=== PATIENT | female | born 1950 | race Caucasian/White ===

== ENCOUNTER → 2018-03-03 08:43 | Outpatient (CLI) | payer MEDICARE, OTHER, SELFPAY ==
--- NOTE | 2018-03-03 | DI.MG.S_ITS ---
BILATERAL DIGITAL SCREENING MAMMOGRAM 3D/2D WITH CAD: 03/03/2018 CLINICAL: Routine screening. Baseline exam. Family history of breast cancer. Comparison is made to exams dated: 01/28/2016 mammogram, 01/31/2015 mammogram, and 09/21/2013 mammogram - [facility]. The tissue of both breasts is heterogeneously dense. This may lower the sensitivity of mammography. Current study was also evaluated with a Computer Aided Detection (CAD) system. No significant masses, calcifications, or other findings are seen in either breast. There has been no significant interval change. IMPRESSION: NEGATIVE There is no mammographic evidence of malignancy. A 1 year screening mammogram is recommended. This exam was interpreted at Station ID: [id number]. NOTE: For mammograms, a report in lay terms will be sent to the patient. Approximately 15% of breast malignancies will not be visualized mammographically. In the management of a palpable breast mass, a negative mammogram must not discourage biopsy of a clinically suspicious lesion. Electronically Signed By: Jabari maguire/zheng:03/11/2018 18:30:17 letter sent: Normal Exam ACR BI-RADS Category 1: Negative 3341F
== END ==
PROVIDERS: PCP Internal Medicine; Visit Provider Internal Medicine
DX: Z12.31 Encounter for screening mammogram for malignant neoplasm of breast (principal); Z80.3 Family history of malignant neoplasm of breast
CPT/HCPCS: 77063; 77067

== ENCOUNTER → 2019-10-26 12:07 | Outpatient (CLI) | payer MEDICARE, OTHER, SELFPAY ==
--- NOTE | 2019-10-26 | DI.MG.S_ITS ---
BILATERAL DIGITAL SCREENING MAMMOGRAM 3D/2D WITH CAD: 10/26/2019 CLINICAL: Routine screening. Family history of breast cancer. Comparison is made to exams dated: 03/03/2018 mammogram - [facility], 01/28/2016 mammogram, 01/31/2015 mammogram, and 09/21/2013 mammogram - [facility]. The tissue of both breasts is heterogeneously dense. This may lower the sensitivity of mammography. Current study was also evaluated with a Computer Aided Detection (CAD) system. No significant masses, calcifications, or other findings are seen in either breast. There has been no significant interval change. IMPRESSION: NEGATIVE There is no mammographic evidence of malignancy. A 1 year screening mammogram is recommended. This exam was interpreted at Station ID: [id number]. NOTE: For mammograms, a report in lay terms will be sent to the patient. Approximately 15% of breast malignancies will not be visualized mammographically. In the management of a palpable breast mass, a negative mammogram must not discourage biopsy of a clinically suspicious lesion. Electronically Signed By: Carlos porter/zheng:10/26/2019 16:11:05 letter sent: Normal Exam ACR BI-RADS Category 1: Negative 3341F
== END ==
PROVIDERS: PCP Internal Medicine; Referring Provider Internal Medicine; Visit Provider Internal Medicine
DX: Z12.31 Encounter for screening mammogram for malignant neoplasm of breast (principal); Z80.3 Family history of malignant neoplasm of breast; Z78.0 Asymptomatic menopausal state; Z87.891 Personal history of nicotine dependence; Z90.722 Acquired absence of ovaries, bilateral
CPT/HCPCS: 77063; 77067; 77080

== ENCOUNTER → 2020-08-08 16:15 | Outpatient (ROUT) | payer MEDICARE, OTHER, SELFPAY ==
[2020-08-08 16:35] LABS: Aspartate Aminotransferase 38 IU/L (14-36); Blood Urea Nitrogen 19 mg/dL (7-17); Calcium 9.6 mg/dL (8.4-10.2); Carbon Dioxide 26 mmol/L (22-32); Chloride 102 mmol/L (98-107); Cholesterol 206 mg/dL (140-199); Estimated Glomerular Filt Rate > 60.0 mL/min (>60); Glucose 100 mg/dL (80-110); HDL Cholesterol 64 mg/dL (40-60); HEMOLYSIS < 15 (0-50); LDL Cholesterol Calculated 104 mg/dL (<100); Potassium 4.5 mmol/L (3.4-5.1); Sodium 139 mmol/L (137-145); Triglycerides 192 mg/dL (35-150)
== END ==
PROVIDERS: PCP Internal Medicine; Visit Provider Internal Medicine
DX: R03.0 Elevated blood-pressure reading, without diagnosis of hypertension (principal); E78.2 Mixed hyperlipidemia
CPT/HCPCS: 80048; 80061; 84450

== ENCOUNTER → 2020-12-26 18:04 | Outpatient (CLI) | payer MEDICARE, OTHER, SELFPAY ==
--- NOTE | 2020-12-26 | DI.MG.S_ITS ---
BILATERAL DIGITAL SCREENING MAMMOGRAM 3D/2D WITH CAD: 12/26/2020 CLINICAL: Routine screening. Comparison is made to exams dated: 10/26/2019 mammogram, 03/03/2018 mammogram - [facility], and 01/28/2016 mammogram - [facility]. The tissue of both breasts is heterogeneously dense. This may lower the sensitivity of mammography. Current study was also evaluated with a Computer Aided Detection (CAD) system. No significant masses, calcifications, or other findings are seen in either breast. There has been no significant interval change. IMPRESSION: NEGATIVE There is no mammographic evidence of malignancy. A 1 year screening mammogram is recommended. This exam was interpreted at Station ID: [id number]. NOTE: For mammograms, a report in lay terms will be sent to the patient. Approximately 15% of breast malignancies will not be visualized mammographically. In the management of a palpable breast mass, a negative mammogram must not discourage biopsy of a clinically suspicious lesion. Electronically Signed By: Annmarie colvin/zheng:12/27/2020 10:23:52 letter sent: Normal Exam ACR BI-RADS Category 1: Negative 3341F
== END ==
PROVIDERS: PCP Internal Medicine; Referring Provider Internal Medicine; Visit Provider Internal Medicine
DX: Z12.31 Encounter for screening mammogram for malignant neoplasm of breast (principal)
CPT/HCPCS: 77063; 77067

== ENCOUNTER → 2022-01-03 09:30 | Outpatient (CLI) | payer MEDICARE, OTHER, SELFPAY ==
--- NOTE | 2022-01-03 | DI.MG.S_ITS ---
BILATERAL DIGITAL SCREENING MAMMOGRAM 3D/2D WITH CAD: 01/03/2022 CLINICAL: Routine screening. Family history of breast cancer. Comparison is made to exams dated: 12/26/2020 mammogram, 03/03/2018 mammogram, and 10/26/2019 mammogram - [facility]. Both breasts are heterogeneously dense, which may obscure small masses (category c / 51-75% glandular tissue). Current study was also evaluated with a Computer Aided Detection (CAD) system. No significant masses, calcifications, or other findings are seen in either breast. There has been no significant interval change. IMPRESSION: NEGATIVE There is no mammographic evidence of malignancy. A 1 year screening mammogram is recommended. Based on the Tyrer Cuzick model (a risk assessment model) the patient's lifetime risk is 6.0% and her 10 year risk is 3.8%. According to the ACR, ACS, and NCCN guidelines, an annual breast MRI exam along with mammogram is recommended if the patient's lifetime risk is 20% or greater. This exam was interpreted at Station ID: [id number]. NOTE: For mammograms, a report in lay terms will be sent to the patient. Approximately 15% of breast malignancies will not be visualized mammographically. In the management of a palpable breast mass, a negative mammogram must not discourage biopsy of a clinically suspicious lesion. Electronically Signed By: Mayur monae/zheng:01/03/2022 10:17:19 letter sent: Normal Exam ACR BI-RADS Category 1: Negative 3341F
== END ==
PROVIDERS: PCP Internal Medicine; Referring Provider Internal Medicine; Visit Provider Internal Medicine
DX: Z12.31 Encounter for screening mammogram for malignant neoplasm of breast (principal); Z80.3 Family history of malignant neoplasm of breast
CPT/HCPCS: 77063; 77067

== ENCOUNTER → 2022-05-22 15:52 | Outpatient (CLI) | payer MEDICARE, OTHER, SELFPAY ==
[2022-05-22 16:14] LABS: Hematocrit 39.3 % (36-46); Hemoglobin 12.9 g/dL (12.0-16.0); Mean Corpuscular HGB Conc 32.9 % (30-36); Mean Corpuscular Hemoglobin 29.9 PG (26-34); Mean Corpuscular Volume 90.8 fL (80-100); Platelet Count 212 X10^3/uL (150-400); Red Blood Cell Count 4.33 X10^6/uL (4.0-5.2); Red Cell Distribution Width 14.5 % (11.6-14.8); White Blood Cell Count 6.7 X10^3/uL (4.5-11.0)
[2022-05-22 16:27] LABS: Alanine Aminotransferase 32 IU/L (<35); Albumin 4.5 g/dL (3.5-5.0); Albumin Globulin Ratio 1.5 (1.0-2.8); Alkaline Phosphatase 55 U/L (38-126); Aspartate Aminotransferase 33 IU/L (14-36); BUN Creatinine Ratio 21.2 (6-22); Bilirubin Total 0.4 mg/dL (0.2-1.3); Blood Urea Nitrogen 18 mg/dL (7-17); Calcium 9.1 mg/dL (8.4-10.2); Carbon Dioxide 27 mmol/L (22-32); Chloride 104 mmol/L (98-107); Cholesterol 211 mg/dL (140-199); Estimated Glomerular Filt Rate > 60 mL/min (>60); Glucose 118 mg/dL (80-110); HDL Cholesterol 54 mg/dL (40-60); HEMOLYSIS < 15 (0-50); LDL Cholesterol Calculated 89 mg/dL (<100); Potassium 4.1 mmol/L (3.4-5.1); Sodium 138 mmol/L (137-145); Total Protein 7.5 g/dL (6.3-8.2); Triglycerides 339 mg/dL (35-150)
[2022-05-22 16:46] LABS: HEMOLYSIS < 15 (0-50); Iron 132 ug/dL (37-170)
[2022-05-22 16:57] LABS: Percent Iron Saturation 35 % (15-50); Total Iron Binding Capacity 377 ug/dL (265-497); Transferrin 294 mg/dL (206-381)
[2022-05-22 17:01] LABS: Ferritin 47 ng/mL (11-264)
[2022-05-22 17:16] LABS: TSH w/ Reflex to FT4 9.33 uIU/mL (0.47-4.68)
[2022-05-22 17:53] LABS: Free T4, Direct Thyroxine 0.67 ng/dL (0.78-2.19)
== END ==
PROVIDERS: PCP Internal Medicine; Referring Provider Internal Medicine; Visit Provider Internal Medicine
DX: E78.2 Mixed hyperlipidemia (principal); D50.9 Iron deficiency anemia, unspecified; R03.0 Elevated blood-pressure reading, without diagnosis of hypertension
CPT/HCPCS: 36415; 80053; 80061; 82728; 83540; 83550; 84439; 84443; 85027

== ENCOUNTER → 2022-05-28 11:18 | Outpatient (CLI) | payer MEDICARE, OTHER, SELFPAY ==
[2022-05-28 12:36] LABS: Free T3, Triiodothyronine Free 3.57 pg/mL (2.77-5.27); Free T4, Direct Thyroxine 0.68 ng/dL (0.78-2.19); Triiodothryronine T3 Uptake 25.3 % (23.5-40.5)
[2022-05-28 12:49] LABS: Thyroid Stimulating Hormone 8.96 uIU/mL (0.47-4.68)
[2022-05-29 08:36] LABS: Thyroid Peroxidase Antibodies 70 IU/mL (0-34)
== END ==
PROVIDERS: PCP Internal Medicine; Referring Provider Internal Medicine; Visit Provider Internal Medicine
DX: E03.9 Hypothyroidism, unspecified (principal)
CPT/HCPCS: 36415; 84439; 84443; 84479; 84481; 86376

== ENCOUNTER → 2022-08-12 07:03 | Outpatient (CLI) | payer MEDICARE, OTHER, SELFPAY ==
[2022-08-12 08:01] LABS: Aspartate Aminotransferase 28 IU/L (14-36); Cholesterol 129 mg/dL (140-199); HDL Cholesterol 56 mg/dL (40-60); LDL Cholesterol Calculated 34 mg/dL (<100); Triglycerides 194 mg/dL (35-150)
[2022-08-12 08:30] LABS: TSH w/ Reflex to FT4 6.51 uIU/mL (0.47-4.68)
[2022-08-12 08:57] LABS: Free T4, Direct Thyroxine 0.83 ng/dL (0.78-2.19)
== END ==
PROVIDERS: PCP Internal Medicine; Referring Provider Internal Medicine; Visit Provider Internal Medicine
DX: E03.9 Hypothyroidism, unspecified (principal); E78.2 Mixed hyperlipidemia
CPT/HCPCS: 36415; 80061; 84439; 84443; 84450

== ENCOUNTER → 2023-01-12 12:49 | Outpatient (CLI) | payer MEDICARE, OTHER, SELFPAY ==
--- NOTE | 2023-01-12 12:50 | DI.MG.S_ITS ---
BILATERAL DIGITAL SCREENING MAMMOGRAM 3D/2D WITH CAD: 01/12/2023 CLINICAL: Routine screening. Family history of breast cancer. Comparison is made to exams dated: 01/03/2022 mammogram, 12/26/2020 mammogram, and 10/26/2019 mammogram - [facility]. Both breasts are heterogeneously dense, which may obscure small masses (category c / 51-75% glandular tissue). Current study was also evaluated with a Computer Aided Detection (CAD) system. There are benign calcifications in both breasts. No significant masses, calcifications, or other findings are seen in either breast. There has been no significant interval change. IMPRESSION: BENIGN There is no mammographic evidence of malignancy. A 1 year screening mammogram is recommended. Based on the Tyrer Cuzick model (a risk assessment model) the patient's lifetime risk is 5.7% and her 10 year risk is 3.9%. According to the ACR, ACS, and NCCN guidelines, an annual breast MRI exam along with mammogram is recommended if the patient's lifetime risk is 20% or greater. This exam was interpreted at Station ID: [id number]. NOTE: For mammograms, a report in lay terms will be sent to the patient. Approximately 15% of breast malignancies will not be visualized mammographically. In the management of a palpable breast mass, a negative mammogram must not discourage biopsy of a clinically suspicious lesion. Electronically Signed By: Zay montelongo/zheng:01/12/2023 13:54:50 letter sent: Normal Exam ACR BI-RADS Category 2: Benign Finding(s) 3342F
== END ==
PROVIDERS: PCP Internal Medicine; Referring Provider Internal Medicine; Visit Provider Internal Medicine
DX: Z12.31 Encounter for screening mammogram for malignant neoplasm of breast (principal); Z80.3 Family history of malignant neoplasm of breast
CPT/HCPCS: 77063; 77067

== ENCOUNTER → 2023-06-01 07:17 | Outpatient (CLI) | payer MEDICARE, OTHER, SELFPAY ==
[2023-06-01 08:02] LABS: Influenza A - CEPHEID Flu A NEGATIVE (NEGATIVE); Influenza B - CEPHEID Flu B NEGATIVE (NEGATIVE); Respiratory Syncytial Virus Negative (Negative)
[2023-06-01 08:04] LABS: COVID-19 CEPHEID 4-PLEX PCR Negative (Negative)
== END ==
PROVIDERS: PCP Internal Medicine; Visit Provider Nurse Practitioner Family
DX: R06.02 Shortness of breath (principal); K13.79 Other lesions of oral mucosa
CPT/HCPCS: 0241U; 87070

== ENCOUNTER → 2023-06-22 16:17 | Outpatient (CLI) | payer MEDICARE, OTHER, SELFPAY ==
[2023-06-22 17:22] LABS: Hematocrit 38.3 % (36-46); Hemoglobin 12.9 g/dL (12.0-16.0); Mean Corpuscular HGB Conc 33.8 % (30-36); Mean Corpuscular Hemoglobin 30.8 PG (26-34); Mean Corpuscular Volume 91.2 fL (80-100); Platelet Count 186 X10^3/uL (150-400); Red Cell Distribution Width 13.9 % (11.6-14.8); White Blood Cell Count 6.6 X10^3/uL (4.5-11.0)
[2023-06-22 17:29] LABS: Hemoglobin A1C% w Est Avg Glu 5.7 % (4.0-6.0)
[2023-06-22 18:54] LABS: Alanine Aminotransferase 43 IU/L (<35); Albumin 4.1 g/dL (3.5-5.0); Albumin Globulin Ratio 1.5 (1.0-2.8); Alkaline Phosphatase 46 U/L (38-126); Aspartate Aminotransferase 49 IU/L (14-36); BUN Creatinine Ratio 23.3 (6-22); Bilirubin Total 0.5 mg/dL (0.2-1.3); Blood Urea Nitrogen 17 mg/dL (7-17); Calcium 8.9 mg/dL (8.4-10.2); Carbon Dioxide 27 mmol/L (22-32); Chloride 106 mmol/L (98-107); Cholesterol 136 mg/dL (140-199); Estimated Glomerular Filt Rate > 60 mL/min (>60); Globulin 2.7 g/dL (1.7-4.1); Glucose 91 mg/dL (80-110); HDL Cholesterol 59 mg/dL (40-60); HEMOLYSIS < 15 (0-50); LDL Cholesterol Calculated 39 mg/dL (<100); Potassium 3.8 mmol/L (3.4-5.1); Sodium 138 mmol/L (137-145); Total Protein 6.8 g/dL (6.3-8.2); Triglycerides 190 mg/dL (35-150)
[2023-06-22 19:13] LABS: TSH w/ Reflex to FT4 0.51 uIU/mL (0.47-4.68)
[2023-06-22 19:29] LABS: Ferritin 172 ng/mL (11-264)
== END ==
PROVIDERS: PCP Internal Medicine; Referring Provider Internal Medicine; Visit Provider Internal Medicine
DX: E03.9 Hypothyroidism, unspecified (principal); I10 Essential (primary) hypertension; E78.2 Mixed hyperlipidemia; R03.0 Elevated blood-pressure reading, without diagnosis of hypertension; D50.9 Iron deficiency anemia, unspecified; R73.01 Impaired fasting glucose
CPT/HCPCS: 80053; 80061; 82728; 83036; 84443; 85027

== ENCOUNTER → 2023-06-24 10:02 | Outpatient (CLI) | payer MEDICARE, OTHER, SELFPAY ==
[2023-06-25 13:28] LABS: Fecal Immunochemical Test Negative (Negative)
== END ==
PROVIDERS: PCP Internal Medicine; Referring Provider Internal Medicine; Visit Provider Internal Medicine
DX: Z86.010 Personal history of colon polyps (principal)
CPT/HCPCS: 82274

== ENCOUNTER → 2023-11-17 13:35 | Outpatient (CLI) | payer MEDICARE, OTHER, SELFPAY ==
[2023-11-17 14:05] LABS: Appearance Urine UA CLEAR; Bilirubin Urine UA NEGATIVE (NEGATIVE); Color Urine UA YELLOW; Glucose Urine UA NEGATIVE (Negative); Ketones Urine UA NEGATIVE (NEGATIVE); Leukocyte Esterase Urine UA NEGATIVE (NEGATIVE); Nitrite Urine UA NEGATIVE (Negative); Occult Blood Urine UA NEGATIVE (Negative); Protein Urine UA NEGATIVE (Negative); Urobilinogen Urine UA 0.2 E.U./dL (0.2)
[2023-11-17 14:06] LABS: pH Urine UA 5.5 (4.5-8.0)
[2023-11-17 14:20] LABS: Bacteria Urine None Seen; Culture Indicated Urine Cult Not Indicated; RBC Urine None Seen (0-5/HPF); Squamous Epithelial Cell Urine 1-5 /HPF (0-5/HPF); Urine Volume 10mL (spun); WBC Urine None Seen (0-5/HPF)
== END ==
PROVIDERS: PCP Internal Medicine; Referring Provider Internal Medicine; Visit Provider Internal Medicine
DX: R30.0 Dysuria (principal)
CPT/HCPCS: 81001

== ENCOUNTER → 2024-01-12 10:22 | Outpatient (CLI) | payer MEDICARE, OTHER, SELFPAY ==
[2024-01-12 11:20] LABS: Hematocrit 39.3 % (36-46); Hemoglobin 13.3 g/dL (12.0-16.0); Mean Corpuscular HGB Conc 33.8 % (30-36); Mean Corpuscular Hemoglobin 30.6 PG (26-34); Mean Corpuscular Volume 90.7 fL (80-100); Platelet Count 200 X10^3/uL (150-400); Red Blood Cell Count 4.33 X10^6/uL (4.0-5.2); Red Cell Distribution Width 13.7 % (11.6-14.8); White Blood Cell Count 5.5 X10^3/uL (4.5-11.0)
[2024-01-12 11:46] LABS: HEMOLYSIS < 15 (0-50); Iron 96 ug/dL (37-170)
[2024-01-12 11:48] LABS: Alanine Aminotransferase 23 IU/L (<35); Albumin 4.4 g/dL (3.5-5.0); Albumin Globulin Ratio 1.8 (1.0-2.8); Alkaline Phosphatase 45 U/L (38-126); Aspartate Aminotransferase 29 IU/L (14-36); BUN Creatinine Ratio 18.4 (6-22); Bilirubin Total 0.5 mg/dL (0.2-1.3); Blood Urea Nitrogen 14 mg/dL (7-17); Calcium 9.4 mg/dL (8.4-10.2); Carbon Dioxide 26 mmol/L (22-32); Chloride 104 mmol/L (98-107); Estimated Glomerular Filt Rate > 60 mL/min (>60); Globulin 2.4 g/dL (1.7-4.1); Glucose 114 mg/dL (80-110); HEMOLYSIS < 15 (0-50); Potassium 4.3 mmol/L (3.4-5.1); Sodium 136 mmol/L (137-145); Total Protein 6.8 g/dL (6.3-8.2)
[2024-01-12 11:56] LABS: Percent Iron Saturation 29 % (15-50); Total Iron Binding Capacity 327 ug/dL (265-497); Transferrin 270 mg/dL (206-381)
[2024-01-12 12:19] LABS: TSH w/ Reflex to FT4 2.06 uIU/mL (0.47-4.68)
[2024-01-12 12:22] LABS: Ferritin 111 ng/mL (11-264)
== END ==
PROVIDERS: PCP Internal Medicine; Referring Provider Internal Medicine; Visit Provider Internal Medicine
DX: D50.9 Iron deficiency anemia, unspecified (principal); E83.42 Hypomagnesemia; R10.9 Unspecified abdominal pain; K21.9 Gastro-esophageal reflux disease without esophagitis; Z86.0100 Personal history of colon polyps, unspecified; K59.01 Slow transit constipation; R10.30 Lower abdominal pain, unspecified
CPT/HCPCS: 36415; 80053; 82728; 83540; 83550; 83735; 84443; 85027

== ENCOUNTER → 2024-02-03 15:27 | Outpatient (CLI) | payer MEDICARE, OTHER, SELFPAY ==
--- NOTE | 2024-02-03 15:30 | DI.MG.S_ITS ---
BILATERAL DIGITAL SCREENING MAMMOGRAM 3D/2D WITH CAD: 02/03/2024 CLINICAL: Routine screening. Family history of breast cancer. Comparison is made to exams dated: 01/12/2023 mammogram, 12/26/2020 mammogram, and 01/03/2022 mammogram - [facility]. There are scattered areas of fibroglandular density (category b / 25%-50% glandular tissue). Current study was also evaluated with a Computer Aided Detection (CAD) system. There are benign calcifications in both breasts. No significant masses, calcifications, or other findings are seen in either breast. There has been no significant interval change. IMPRESSION: BENIGN There is no mammographic evidence of malignancy. A 1 year screening mammogram is recommended. Based on the Tyrer Cuzick model (a risk assessment model) the patient's lifetime risk is 3.5% and her 10 year risk is 2.6%. According to the ACR, ACS, and NCCN guidelines, an annual breast MRI exam along with mammogram is recommended if the patient's lifetime risk is 20% or greater. This exam was interpreted at Station ID: [id number]. NOTE: For mammograms, a report in lay terms will be sent to the patient. Approximately 15% of breast malignancies will not be visualized mammographically. In the management of a palpable breast mass, a negative mammogram must not discourage biopsy of a clinically suspicious lesion. Electronically Signed By: Annmarie colvin/zheng:02/11/2024 10:35:59 letter sent: Normal Exam ACR BI-RADS Category 2: Benign
== END ==
PROVIDERS: PCP Internal Medicine; Referring Provider Internal Medicine; Visit Provider Internal Medicine
DX: Z12.31 Encounter for screening mammogram for malignant neoplasm of breast (principal); Z80.3 Family history of malignant neoplasm of breast
CPT/HCPCS: 77063; 77067

== ENCOUNTER → 2024-06-14 11:31 | Outpatient (CLI) | payer MEDICARE, OTHER, SELFPAY ==
--- NOTE | 2024-06-14 11:33 | DI.RAD.S_ITS ---
PROCEDURE: XR FOOT LT MIN 3V INDICATIONS: left foot pain, r/o 5th metatarsal fx TECHNIQUE: 3 views of the foot were acquired. COMPARISON: None. FINDINGS: Bones: No fractures or dislocations. No suspicious bony lesions. Mild hallux valgus. Plantar and retrocalcaneal enthesopathy. Soft tissues: No tibiotalar joint effusion. Achilles tendon appears normal. IMPRESSION: No acute bony abnormality. Dictated by: Femi Domínguez M.D. on 06/14/2024 at 14:53 Approved by: Femi Domínguez M.D. on 06/14/2024 at 14:54
== END ==
PROVIDERS: PCP Internal Medicine; Referring Provider Internal Medicine; Visit Provider Internal Medicine
DX: M20.12 Hallux valgus (acquired), left foot (principal); M79.672 Pain in left foot; M72.2 Plantar fascial fibromatosis; M77.32 Calcaneal spur, left foot
CPT/HCPCS: 73630

== ENCOUNTER → 2024-06-26 10:39 | Outpatient (CLI) | payer MEDICARE, OTHER, SELFPAY ==
[2024-06-26 11:17] LABS: Hematocrit 39.3 % (36-46); Hemoglobin 13.4 g/dL (12.0-16.0); Mean Corpuscular HGB Conc 34.2 % (30-36); Mean Corpuscular Hemoglobin 31.3 PG (26-34); Mean Corpuscular Volume 91.6 fL (80-100); Platelet Count 202 X10^3/uL (150-400); Red Blood Cell Count 4.29 X10^6/uL (4.0-5.2); Red Cell Distribution Width 13.9 % (11.6-14.8); White Blood Cell Count 5.3 X10^3/uL (4.5-11.0)
[2024-06-26 11:33] LABS: Hemoglobin A1C% w Est Avg Glu 5.5 % (4.0-6.0)
[2024-06-26 11:48] LABS: Aspartate Aminotransferase 39 IU/L (14-36); BUN Creatinine Ratio 19.8 (6-22); Blood Urea Nitrogen 16 mg/dL (7-17); Calcium 9.5 mg/dL (8.4-10.2); Carbon Dioxide 28 mmol/L (22-32); Chloride 102 mmol/L (98-107); Cholesterol 151 mg/dL (140-199); Estimated Glomerular Filt Rate > 60 mL/min (>60); Glucose 102 mg/dL (80-110); HDL Cholesterol 65 mg/dL (40-60); HEMOLYSIS < 15 (0-50); LDL Cholesterol Calculated 51 mg/dL (<100); Potassium 4.4 mmol/L (3.4-5.1); Sodium 139 mmol/L (137-145); Triglycerides 176 mg/dL (35-150)
[2024-06-26 12:16] LABS: TSH w/ Reflex to FT4 1.85 uIU/mL (0.47-4.68)
== END ==
LOC: LAB 10:40
PROVIDERS: PCP Internal Medicine; Referring Provider Internal Medicine; Visit Provider Internal Medicine
DX: E78.2 Mixed hyperlipidemia (principal); R73.01 Impaired fasting glucose; E03.9 Hypothyroidism, unspecified
CPT/HCPCS: 36415; 80048; 80061; 83036; 84443; 84450; 85027

== ENCOUNTER → 2024-06-28 10:16 | Outpatient (CLI) | payer MEDICARE, OTHER, SELFPAY ==
[2024-06-29 11:12] LABS: Fecal Immunochemical Test Positive (Negative)
== END ==
PROVIDERS: PCP Internal Medicine; Referring Provider Internal Medicine; Visit Provider Internal Medicine
DX: Z12.11 Encounter for screening for malignant neoplasm of colon (principal); Z86.0100 Personal history of colon polyps, unspecified
CPT/HCPCS: 82274

== ENCOUNTER 2024-07-11 06:33 | Day surgery (SDC) | payer MEDICARE, OTHER, SELFPAY ==
--- NOTE | 2024-07-11 06:49 | EKG_ITS ---
[address] [address] Test Date: 2024-07-11 Pat Name: Purnima Rodriges Department: Room: Gender: Female Tree Pruner: Tammy MOTT : 1950 Requested By: Order Number: [id number] Reading MD: Brandon Calvin Measurements Intervals [place] Rate: 70 P: 24 WV: 150 QRS: 15 QRSD: 86 T: 10 QT: 438 QTc: 473 Interpretive Statements Normal sinus rhythm Electronically Signed On 07-12-2024 17:39:34 PDT by Brandon Calvin
[2024-07-11 07:20] VITALS: BP 141/85; PULSE 69; RESP 15; TEMP 36.3; O2SAT 94
[2024-07-11] MEDS: LACTATED RINGERS 1,000 ML 42 ML IV (07:20)
--- NOTE | 2024-07-11 07:48 | P.HP_ITS ---
History of Present Illness History of Present Illness Chief complaint: [facility] Narrative: 74-year-old woman with history of colon polyps. Her last colonoscopy was 4 years ago. She does not recall where this colonoscopy was performed. She has no complaints referable to her colon and presents for screening colonoscopy. [facility] Medical History (Updated 06/26/24 @ 10:27 by Marito Vasquez MD) Impaired fasting glucose History of colonic polyps De Quervain's tenosynovitis Mumps (~1956) Measles (~1955) Chicken pox (~1956) Cataracts, bilateral (~2014) Colon polyps (~2014) Acquired hypothyroidism Obstructive sleep apnea Depression, major, recurrent (~1969) Obesity (BMI 30.0-34.9) Primary osteoarthritis involving multiple joints Iron deficiency anemia Elevated blood pressure reading without diagnosis of hypertension GERD without esophagitis Mixed hyperlipidemia Surgical History Anesthesia Hx of appendectomy (~2006) Hx of cholecystectomy (~2006) Hx of hysterectomy (~2002) Family History Father Hypertension Heart disease Diabetes mellitus Cancer Hyperlipidemia Mother Liver cancer Heart disease Brother Heart disease Mental health problem Brother Mental health problem Grandmother Cancer Diabetes mellitus Hypertension Family/Other Mental health problem Social History marital status: household members: spouse occupational status: previously employed Smoking Status: Never smoker alcohol intake: current substance use type: does not use Meds Home Medications and Allergies Home Medications Medication Instructions Recorded Confirmed Type levothyroxine 50 mcg tablet 50 mcg PO DAILY #90 tabs 09/13/23 06/26/24 Rx cyclobenzaprine 5 mg tablet 5 mg PO TID PRN muscle spasm #30 01/28/24 06/26/24 Rx tabs rosuvastatin 10 mg tablet 10 mg PO DAILY #90 tabs 05/08/24 06/26/24 Rx cholecalciferol (vitamin D3) 50 PO 06/14/24 06/26/24 History mcg (2,000 unit) capsule (Vitamin D3) [id number] 4 mg-folic acid tab PO 06/14/24 06/26/24 History 200 mcg-vit K 25 mcg-lutein tablet (Centrum Minis Women 50 Plus) pantoprazole 20 mg tablet,delayed 20 mg PO DAILY 06/26/24 06/26/24 History release sodium,potassium,mag sulfates 17.5 See Rx Instructions PO .COMPLEX 07/05/24 Rx gram-3.13 gram-1.6 gram oral soln #354 mL (Suprep Bowel Prep Kit) Allergies Allergy/AdvReac Type Severity Reaction Status Date / Time codeine [CODEINE] Allergy Unknown Nausea Verified 07/11/24 07:09 Penicillins [PENICILLINS] Allergy Unknown Nausea Verified 07/11/24 07:09 nickel AdvReac Intermediate Rash Verified 07/11/24 07:09 Review of Systems Review of Systems Narrative: Comprehensive review of systems negative to direct questioning the exception of the previously mentioned chronic conditions. Exam Vital Signs (past 8 hours): - 07/11/24 07:20 Temperature 97.4 F L Pulse Rate 69 Respiratory Rate 15 Blood Pressure 141/85 H Pulse Oximetry 94 Oxygen Delivery Method Room Air Oxygen Delivery Method Room Air Narrative Exam Narrative: In general this is well-nourished well-developed female alert and oriented x3 in no acute distress. Head is normocephalic and atraumatic. Neck is supple. Back is without CVA or spinous process tenderness. Lungs are clear to auscultation. Chest is symmetric nontender with normal inspiratory and expiratory excursion. Abdomen is soft nontender with normal bowel sounds. Extremities manifests full range of motion. Skin was clear there is no adenopathy. Assessment & Plan Assessment and plan (1) History of colonic polyps: Status: Acute Plan I have recommended screening colonoscopy. Alternatives risks and benefits were discussed in detail. Patient voices understanding and desires to proceed as I have outlined. Time-Based Coding :: [TOTAL MINUTES] spent with patient and on the chart (including review of chart, obtaining history, exam, reviewing outside data, placing orders, documenting exam and treatment plan, and counseling patient) on [DATE]. PROFEE Outside Sales Account Manager Document charge(s): Yes
[2024-07-11] MEDS: GLUCAGON,HUMAN RECOMBINANT 1 MG/ML VIAL 0.5 MG IV (08:31)
[2024-07-11 08:45] VITALS: BP 133/57; PULSE 67; RESP 14; TEMP 36.7; O2SAT 93
[2024-07-11] MEDS: ONDANSETRON 4 MG/2 ML INJ IV (08:49)
[2024-07-11 08:51] VITALS: BP 122/74; PULSE 63; RESP 11; O2SAT 91
[2024-07-11 08:55] VITALS: BP 117/81; PULSE 64; RESP 11; O2SAT 92
[2024-07-11 09:05] VITALS: BP 120/72; PULSE 67; RESP 10; O2SAT 94
--- NOTE | 2024-07-11 09:07 | PM.OP.1 ---
Operative Date/Time/Diagnoses Date of procedure: 07/11/24 Time of procedure: 08:00 Pre-op diagnosis: History of polyps Post-op diagnosis: same Procedure & Clinicians Same procedure as scheduled: Yes Surgeon: David Keller Yes if Unassisted: Yes Anesthesia Type: Sedation
--- NOTE | 2024-07-11 09:08 | PM.OP.1 ---
Procedure & Clinicians Procedure: Colonoscopy Same procedure as scheduled: Yes Surgeon: David Horn Click Yes if Unassisted: Yes Operative Notes Findings: 2 x 4 mm hypertrophic polyp at 60 cm cauterized. Procedure in detail: After obtaining informed consent properly identifying the patient the patient was transported to the endo suite and was placed on the table in the left lateral decubitus position IV sedation was administered and on and when an adequate level had been obtained a 2 m fiberoptic flexible Olympus colonoscope was passed transanally into the rectum clear around the cecum. Prep was adequate. Exam was performed retrograde. Cecum was positively identified at the confluence of the tenia coli and appendiceal orifice. Cecum and ascending colon were unremarkable in appearance. There were no polyps AVMs or ulcerations. The hepatic flexure transverse colon and splenic flexure were similarly without evidence of pathologic abnormality with the exception of a 2 x 4 mm hypertrophic polyp at 60 cm. This was cauterized. Sigmoid colon was remarkable in appearance for large mouth diverticuli, heavy musculature and tortuosity. Rectum was normal as the scope was withdrawn. The procedure was terminated. The patient tolerated it well and was transported to the recovery room. Post-operative Plan for aftercare: Discharged to home. Repeat colonoscopy 5 years.
== END 2024-07-11 09:26 | disposition home or self-care (01) ==
PROVIDERS: PCP Internal Medicine; Referring Provider Surgery; Visit Provider Surgery
PROC: 0DJD8ZZ Inspection of Lower Intestinal Tract, Via Natural or Artificial Opening Endoscopic (ICD-10-PCS; CPT 45378; principal; 2024-07-11 07:45)
DX: Z12.11 Encounter for screening for malignant neoplasm of colon (principal); Z86.0100 Personal history of colon polyps, unspecified
CPT/HCPCS: 45384; 93005; J1610; J2405; J2704

== ENCOUNTER 2025-01-03 09:56 | Observation (INO) | payer MEDICARE, OTHER, SELFPAY ==
[2025-01-03] VITALS (20 sets, daily range): BP systolic 113–174; BP diastolic 65–85; PULSE 57–95; RESP 12–21; TEMP 36–36.9; O2SAT 93–97; BMI 36.9; BMI 37.8
--- NOTE | 2025-01-03 10:10 | EKG_ITS ---
[facility] [address] [address] Test Date: 2025-01-03 Pat Name: Purnima Rodriges Department: [facility] Room: Gender: Female Forensic Investigator: NOVA : 1950 Requested By: Order Number: [id number] Reading MD: Ceasar Chaves MD Measurements Intervals [place] Rate: 69 P: 37 NV: 166 QRS: 1 QRSD: 80 T: -5 QT: 434 QTc: 465 Interpretive Statements Normal sinus rhythm Electronically Signed On 01-04-2025 7:36:18 PDT by Ceasar Chaves MD
--- NOTE | 2025-01-03 10:10 | DI.RAD.S_ITS ---
PROCEDURE: XR CHEST 1V INDICATIONS: Chest Pain TECHNIQUE: One view of the chest was acquired. COMPARISON: None. FINDINGS: Surgical changes and devices: None. Lungs and pleura: Lungs are clear. No pleural effusions or pneumothorax. Mediastinum: Mediastinal contours appear normal. Heart size is normal. Bones and chest wall: No suspicious bony lesions. Overlying soft tissues appear unremarkable. IMPRESSION: No acute cardiopulmonary abnormality is seen. Dictated by: Aidan Win M.D. on 01/03/2025 at 11:02 Approved by: Aidan Win M.D. on 01/03/2025 at 11:04
[2025-01-03 10:22] LABS: Add Manual Diff / Slide Review NO; Hematocrit 39.2 % (36-46); Hemoglobin 13.3 g/dL (12.0-16.0); Lymphocytes Absolute Auto 1500 /uL (1100-4500); Mean Corpuscular HGB Conc 33.9 % (30-36); Mean Corpuscular Hemoglobin 31.0 PG (26-34); Mean Corpuscular Volume 91.4 fL (80-100); Platelet Count 184 X10^3/uL (150-400)
[2025-01-03 10:29] LABS: INR 1.1 (0.9-1.3); Prothrombin Time 12.1 SECONDS (9.4-12.5)
--- NOTE | 2025-01-03 10:31 | ED_ITS ---
HPI - Chest Pain General Chief Complaint: Chest Pain Stated Complaint: Chest pain/SOB Time Seen by Provider: 01/03/25 10:20 Source: patient Mode of arrival: Family Vehicle Limitations: no limitations History of Present Illness HPI narrative: Patient here with for chest pain nausea back pain and dizziness. Patient denies any prior history of heart attack strokes diabetes or aortic aneurysm or dissection. No family history aortic disease. No syncope no numbness tingling weakness to the legs or feet. Patient states has no pain at this time. No abdominal pain. No black or bloody stools. No recent illness. Related Data Home Medications ?Medication ?Instructions ?Recorded ?Confirmed cholecalciferol (vitamin D3) 50 50 mcg PO DAILY 01/03/25 mcg (2,000 unit) capsule (Vitamin D3) [id number] 4 mg-folic acid 1 tab PO DAILY 06/1401/03/25 200 mcg-vit K 25 mcg-lutein tablet (Centrum Minis Women 50 Plus) pantoprazole 20 mg tablet,delayed 20 mg PO DAILY 06/2601/03/25 release Previous Rx's ?Medication ?Instructions ?Recorded levothyroxine 50 mcg tablet 50 mcg PO DAILY #90 tabs 0 07/18/24 rosuvastatin 10 mg tablet 10 mg PO DAILY #90 tabs 09/13 07/07 citalopram 20 mg tablet 20 mg PO DAILY #90 tabs 08/10/06 Allergies Allergy/AdvReac Type Severity Reaction Status Date / Time codeine (CODEINE) Allergy Unknown Nausea Verified 01/03/25 10:11 Penicillins (PENICILLINS) Allergy Unknown Nausea Verified 01/03/25 10:11 nickel AdvReac Intermediate Rash Verified 01/03/25 10:11 Review of Systems Review of Systems Narrative: GENERAL: Negative chills, fatigue, malaise, fever, positive sweats. HEENT: Negative sinus pain, ear pain, sore throat RESPIRATORY: Negative dyspnea, cough CARDIOVASCULAR: Positive chest pain, negative palpitations GASTROINTESTINAL: Negative vomiting, positive nausea, negative abdominal pain : Negative dysuria, frequency, hematuria MUSCULOSKELETAL: Negative muscle or bony pain SKIN: Negative rash, skin lesions NEUROLOGIC: Negative weakness, numbness ROS Unobtainable: All systems reviewed & are unremarkable except as noted in HPI and below Patient History Medical History (Updated 01/03/25 @ 12:19 by Wilmer Sparks MD) Impaired fasting glucose History of colonic polyps De Quervain's tenosynovitis Mumps (~1956) Measles (~1955) Chicken pox (~1956) Cataracts, bilateral (~2014) Colon polyps (~2014) Acquired hypothyroidism Obstructive sleep apnea Depression, major, recurrent (~1969) Obesity (BMI 30.0-34.9) Primary osteoarthritis involving multiple joints Iron deficiency anemia Elevated blood pressure reading without diagnosis of hypertension GERD without esophagitis Mixed hyperlipidemia Surgical History Anesthesia Hx of appendectomy (~2006) Hx of cholecystectomy (~2006) Hx of hysterectomy (~2002) Family History Father Hypertension Heart disease Diabetes mellitus Cancer Hyperlipidemia Mother Liver cancer Heart disease Brother Heart disease Mental health problem Brother Mental health problem Grandmother Cancer Diabetes mellitus Hypertension Family/Other Mental health problem Social History marital status: household members: spouse occupational status: previously employed Smoking Status: Former smoker alcohol intake: current substance use type: does not use Smoking Status: Former smoker Exam Narrative Exam Narrative: GENERAL: in no distress, not toxic not dyspneic HEAD: Normocephalic. EYES: Pupils equal round ENT: Mucous membranes moist. NECK: Trachea midline. CARDIOVASCULAR: Regular rate and rhythm strong carotid pulses bilaterally strong radial pulses bilaterally. RESPIRATORY: Clear to auscultation. Breath sounds equal bilaterally. No wheezes, rales, or rhonchi. GASTROINTESTINAL: Abdomen soft, non-tender EXTREMITIES: No gross deformities. BACK: No flank tenderness. NEURO: AOx4. Clear speech SKIN: Warm and dry, no diaphoresis PSYCH: Not anxious, is cooperative Initial Vital Signs Initial Vital Signs: Vital Signs Temperature 98.5 F 01/03/25 09:58 Pulse Rate 69 01/03/25 09:58 Respiratory Rate 17 01/03/25 09:58 Blood Pressure 174/85 H 01/03/25 09:58 Pulse Oximetry 96 01/03/25 09:58 Oxygen Delivery Method Room Air 01/03/25 09:58 Scores HEART Score Heart Score history: Moderately Suspicious Heart Score EKG: Normal Heart Score Age: > or = 65 years old Heart Score risk factors: 1-2 risk factors Heart Score troponin: < or = to normal limit Heart Score Total: 4 Course Orders Ordered: ED Orders 01/03/25 10:10 XR chest 1V Stat EKG-12 Lead Stat 01/03/25 10:15 Complete Blood Count AUTO DIFF Stat Comprehensive Metabolic Panel Stat Lipase Stat Magnesium Stat NT-proBNP (BNP-Adult 18+) Stat PTT Partial Thromboplastin Bartolo Stat Prothrombin Time INR Stat Troponin & CK Cardiac Panel Stat 01/03/25 10:32 CT angio chest abdomen pelvis Stat 01/03/25 12:27 Troponin I Stat Acetaminophen (Acetaminophen 325 Mg Tablet) 650 mg PO Q6H PRN PRN Reason: Fever/Mild Pain (1-3) Heparin Sodium (Porcine) (Heparin 5,000 Unit/Ml Vial) 5,000 unit SUBCUT BID FREDRICK Naloxone HCl (Naloxone 0.4 Mg/Ml Vial) 0.2 mg IV Q2MIN PRN PRN Reason: Opiate Reversal Ondansetron HCl (Ondansetron 4 Mg/2 Ml Inj) 4 mg IV Q8HR PRN PRN Reason: Nausea And Vomiting Pantoprazole Sodium (Pantoprazole Dr 40 Mg Tablet) 40 mg PO 0700,2100 FREDRICK Sucralfate (Sucralfate 1 Gm/10 Ml Oral Susp) 1 gm PO Q4HR FREDRICK Discontinued Medications Aspirin (Aspirin 81 Mg Chew Tab) 324 mg PO NOW ONE Stop: 01/03/25 10:11 Last Admin: 01/03/25 11:33 Dose: Not Given Documented By: MARVIN Aspirin (Aspirin 81 Mg Chew Tab) 324 mg PO NOW ONE Stop: 01/03/25 12:17 Last Admin: 01/03/25 12:23 Dose: 324 mg Documented By: CATHERINE Sodium Chloride (Normal Saline 0.9%) 500 mls @ 1,000 mls/hr IV BOLUS ONE Stop: 01/03/25 11:01 Last Infusion: 01/03/25 11:38 Dose: Infused Documented By: Admin: 01/03/25 10:45 Dose: 1,000 mls/hr Documented By: DEO Vital Signs Vital signs: Vital Signs - 8 hr 01/03/25 11:30 01/03/25 11:30 01/03/25 12:00 Pulse Rate 61 Respiratory Rate 14 13 Blood Pressure 145/65 H Pulse Oximetry 94 95 Oxygen Delivery Method 01/03/25 12:00 01/03/25 12:30 01/03/25 12:30 Pulse Rate 61 Respiratory Rate Blood Pressure 153/75 H 157/77 H Pulse Oximetry 96 Oxygen Delivery Method 01/03/25 13:00 01/03/25 13:00 01/03/25 13:30 Pulse Rate 57 L 57 L Respiratory Rate Blood Pressure 144/69 H Pulse Oximetry 95 93 Oxygen Delivery Method Room Air 01/03/25 13:30 01/03/25 14:00 01/03/25 14:01 Pulse Rate 59 L 58 L Respiratory Rate 12 16 Blood Pressure 147/67 H Pulse Oximetry 95 94 Oxygen Delivery Method Room Air 01/03/25 14:01 Pulse Rate Respiratory Rate Blood Pressure 172/74 H Pulse Oximetry Oxygen Delivery Method MDM - Chest Pain Lab Data 01/03/25 10:15 01/03/25 10:15 Labs: Lab Results 01/03/25 01/03/25 Range/Units 10:15 12:27 WBC 5.3 (4.5-11.0) X10^3/uL RBC 4.29 (4.0-5.2) X10^6/uL Hgb 13.3 (12.0-16.0) g/dL Hct 39.2 (36-46) % MCV 91.4 (80-100) fL MCH 31.0 (26-34) PG MCHC 33.9 (30-36) % RDW 13.6 (11.6-14.8) % Plt Count 184 (150-400) X10^3/uL Neut % (Auto) 59.3 (50-75) % Lymph % (Auto) 29.2 (25-40) % Hamblen % (Auto) 8.8 (3-14) % Eos % (Auto) 2.1 (2-4) % Baso % (Auto) 0.6 (0-2) % Neut # (Auto) 3100 (8882-6552) /uL Lymph # (Auto) 1500 (9237-4134) /uL Hamblen # (Auto) 500 (0-900) /uL Eos # (Auto) 100 (0-450) /uL Baso # (Auto) 0 (0-100) /uL PT 12.1 (9.4-12.5) SECONDS INR 1.1 (0.9-1.3) APTT 29 (25.1-36.5) SECONDS Sodium 137 (137-145) mmol/L Potassium 3.9 (3.4-5.1) mmol/L Chloride 103 (98-107) mmol/L Carbon Dioxide 22 (22-32) mmol/L BUN 13 (7-17) mg/dL Creatinine 0.78 (0.52-1.04) mg/dL Estimated GFR > 60 (>60) mL/min BUN/Creatinine Ratio 16.7 (6-22) Glucose 176 H (70-99) mg/dL Calcium 9.0 (8.4-10.2) mg/dL Magnesium 1.9 (1.6-2.3) mg/dL Total Bilirubin 0.7 (0.2-1.3) mg/dL AST 51 H (14-36) IU/L ALT 50 H (<35) IU/L Alkaline Phosphatase 48 (38-126) U/L Total Creatine Kinase 82 (30-135) U/L Troponin I < 0.012 < 0.012 (0.01-0.034) ng/mL NT-Pro-B Natriuret Pep < 20 (<125) pg/mL Total Protein 7.4 (6.3-8.2) g/dL Albumin 4.7 (3.5-5.0) g/dL Globulin 2.7 (1.7-4.1) g/dL Albumin/Globulin Ratio 1.7 (1.0-2.8) Lipase 117 (23-300) U/L Imaging Data CT angio chest abdomen and pelvis: Radiologist's Impression: [place] [address] CT Scan Report Signed with Addenda Patient: Purnima Rodriges MR#: [id number] : 1950 Acct:[id number] Age/Sex: 74 / F Date of Service: 01/03/25 Loc: ED Accession Number: [id number] Procedure: CT angio chest abdomen pelvis Ordering Provider: Wilmer Sparks MD ADDENDUM This report includes an Addendum and supersedes previous reports for this exam. PROCEDURE: CT ANGIO CHEST ABDOMEN PELVIS INDICATIONS: Rule out aortic dissection TECHNIQUE: Precontrast 5 mm thick sections acquired from the lung apices to the iliac crests. After the administration of intravenous contrast, 2.5 mm thick sections again acquired from the lung apices to the iliac crests. Maximum intensity projection (MIP) oblique sagittal and coronal reformats were then acquired. For radiation dose reduction, the following was used: automated exposure control. COMPARISON: None. FINDINGS: Image quality: Diagnostic. AORTA and its attachments: Ascending and descending thoracic aorta and abdominal aorta are of normal caliber without aneurysm or dissection or significant stenosis. Classic three-vessel arch anatomy. Great vessel origins are widely patent. SMA, celiac, and PETRA are widely patent. 2 renal arteries bilaterally without significant stenosis. Bilateral common iliacs and external iliacs are widely patent. Common femorals are widely patent. CHEST: Lower Neck: No enlarged lymph nodes. Thyroid: No thyroid nodules which require sonographic evaluation. Axillae: No enlarged lymph nodes. Chest Wall: Unremarkable. Lungs and Pleura: No pneumothorax or pleural effusions. 3 mm pulmonary nodule, subpleural location, lateral right upper lobe, image 102 of series 6. Heart: Heart size is normal. No pericardial effusion. Thoracic Vessels: Pulmonary arteries demonstrate normal size. Mediastinum and Hilda: No enlarged lymph nodes. Esophagus: No wall thickening. No hiatal hernia. ABDOMEN: Liver: No solid mass. Mild diffuse hepatic steatosis. Gallbladder: Absent Biliary ducts: No biliary dilation. Pancreas: No ductal dilation. Spleen: Size is within normal limits. Adrenal Glands: No adrenal nodules. Kidneys and Ureters: No hydronephrosis. No solid mass. No complex renal cystic lesion which requires follow up. Stomach and Bowel: Normal colonic caliber, without significant wall thickening. Moderately advanced sigmoid diverticulosis without CT evidence of acute diverticulitis. Peritoneum: No abnormal intraperitoneal fluid. No free air. Ventral Wall: No hernia. Abdominal Nodes: No retroperitoneal or mesenteric adenopathy by size criteria. Vessels: Inferior vena cava is normal in size. PELVIS: Pelvic Organs: Uterus is surgically absent. No adnexal masses. Anterior pelvic floor relaxation with cystocele.. Bladder: Unremarkable. Pelvic Nodes: No enlarged lymph nodes. Miscellaneous: No inguinal hernias are seen. Bones: Unremarkable. IMPRESSION: Unremarkable aorta and its attachments. No acute aortic syndrome. 3 mm noncalcified right upper lobe pulmonary nodule. No acute process in the chest, abdomen, and pelvis. Remote hysterectomy and cholecystectomy. Sigmoid diverticulosis. Pelvic floor relaxation with cystocele. Dictated by: Aidan Win M.D. on 01/03/2025 at 10:57 Approved by: Aidan Win M.D. on 01/03/2025 at 11:02 ADDENDUM: I was asked to review the images to check for acute pulmonary emboli. There are no acute pulmonary emboli. Study is adequate for excluding pulmonary emboli. Dictated by: Aidan Win M.D. on 01/03/2025 at 13:30 Approved by: Aidan Win M.D. on 01/03/2025 at 13:30 Addendum Dictated By: Aidan Win MD Addendum Signed By: 01/03/251329 Addendum Cosigned By: DD/ TD/TT: 01/03/25 PROCEDURE: CT ANGIO CHEST ABDOMEN PELVIS INDICATIONS: Rule out aortic dissection TECHNIQUE: Precontrast 5 mm thick sections acquired from the lung apices to the iliac crests. After the administration of intravenous contrast, 2.5 mm thick sections again acquired from the lung apices to the iliac crests. Maximum intensity projection (MIP) oblique sagittal and coronal reformats were then acquired. For radiation dose reduction, the following was used: automated exposure control. COMPARISON: None. FINDINGS: Image quality: Diagnostic. AORTA and its attachments: Ascending and descending thoracic aorta and abdominal aorta are of normal caliber without aneurysm or dissection or significant stenosis. Classic three-vessel arch anatomy. Great vessel origins are widely patent. SMA, celiac, and PETRA are widely patent. 2 renal arteries bilaterally without significant stenosis. Bilateral common iliacs and external iliacs are widely patent. Common femorals are widely patent. CHEST: Lower Neck: No enlarged lymph nodes. Thyroid: No thyroid nodules which require sonographic evaluation. Axillae: No enlarged lymph nodes. Chest Wall: Unremarkable. Lungs and Pleura: No pneumothorax or pleural effusions. 3 mm pulmonary nodule, subpleural location, lateral right upper lobe, image 102 of series 6. Heart: Heart size is normal. No pericardial effusion. Thoracic Vessels: Pulmonary arteries demonstrate normal size. Mediastinum and Hilda: No enlarged lymph nodes. Esophagus: No wall thickening. No hiatal hernia. ABDOMEN: Liver: No solid mass. Mild diffuse hepatic steatosis. Gallbladder: Absent Biliary ducts: No biliary dilation. Pancreas: No ductal dilation. Spleen: Size is within normal limits. Adrenal Glands: No adrenal nodules. Kidneys and Ureters: No hydronephrosis. No solid mass. No complex renal cystic lesion which requires follow up. Stomach and Bowel: Normal colonic caliber, without significant wall thickening. Moderately advanced sigmoid diverticulosis without CT evidence of acute diverticulitis. Peritoneum: No abnormal intraperitoneal fluid. No free air. Ventral Wall: No hernia. Abdominal Nodes: No retroperitoneal or mesenteric adenopathy by size criteria. Vessels: Inferior vena cava is normal in size. PELVIS: Pelvic Organs: Uterus is surgically absent. No adnexal masses. Anterior pelvic floor relaxation with cystocele.. Bladder: Unremarkable. Pelvic Nodes: No enlarged lymph nodes. Miscellaneous: No inguinal hernias are seen. Bones: Unremarkable. IMPRESSION: Unremarkable aorta and its attachments. No acute aortic syndrome. 3 mm noncalcified right upper lobe pulmonary nodule. No acute process in the chest, abdomen, and pelvis. Remote hysterectomy and cholecystectomy. Sigmoid diverticulosis. Pelvic floor relaxation with cystocele. Dictated by: Aidan Win M.D. on 01/03/2025 at 10:57 Approved by: Aidan Win M.D. on 01/03/2025 at 11:02 [place] [address] CT Scan Report Signed Patient: Purnima Rodriges MR#: [id number] : 1950 Acct:[id number] Age/Sex: 74 / F Date of Service: 01/03/25 Loc: ED Accession Number: [id number] Procedure: CT angio chest abdomen pelvis Ordering Provider: Wilmer Sparks MD PROCEDURE: CT ANGIO CHEST ABDOMEN PELVIS INDICATIONS: Rule out aortic dissection TECHNIQUE: Precontrast 5 mm thick sections acquired from the lung apices to the iliac crests. After the administration of intravenous contrast, 2.5 mm thick sections again acquired from the lung apices to the iliac crests. Maximum intensity projection (MIP) oblique sagittal and coronal reformats were then acquired. For radiation dose reduction, the following was used: automated exposure control. COMPARISON: None. FINDINGS: Image quality: Diagnostic. AORTA and its attachments: Ascending and descending thoracic aorta and abdominal aorta are of normal caliber without aneurysm or dissection or significant stenosis. Classic three-vessel arch anatomy. Great vessel origins are widely patent. SMA, celiac, and PETRA are widely patent. 2 renal arteries bilaterally without significant stenosis. Bilateral common iliacs and external iliacs are widely patent. Common femorals are widely patent. CHEST: Lower Neck: No enlarged lymph nodes. Thyroid: No thyroid nodules which require sonographic evaluation. Axillae: No enlarged lymph nodes. Chest Wall: Unremarkable. Lungs and Pleura: No pneumothorax or pleural effusions. 3 mm pulmonary nodule, subpleural location, lateral right upper lobe, image 102 of series 6. Heart: Heart size is normal. No pericardial effusion. Thoracic Vessels: Pulmonary arteries demonstrate normal size. Mediastinum and Hilda: No enlarged lymph nodes. Esophagus: No wall thickening. No hiatal hernia. ABDOMEN: Liver: No solid mass. Mild diffuse hepatic steatosis. Gallbladder: Absent Biliary ducts: No biliary dilation. Pancreas: No ductal dilation. Spleen: Size is within normal limits. Adrenal Glands: No adrenal nodules. Kidneys and Ureters: No hydronephrosis. No solid mass. No complex renal cystic lesion which requires follow up. Stomach and Bowel: Normal colonic caliber, without significant wall thickening. Moderately advanced sigmoid diverticulosis without CT evidence of acute diverticulitis. Peritoneum: No abnormal intraperitoneal fluid. No free air. Ventral Wall: No hernia. Abdominal Nodes: No retroperitoneal or mesenteric adenopathy by size criteria. Vessels: Inferior vena cava is normal in size. PELVIS: Pelvic Organs: Uterus is surgically absent. No adnexal masses. Anterior pelvic floor relaxation with cystocele.. Bladder: Unremarkable. Pelvic Nodes: No enlarged lymph nodes. Miscellaneous: No inguinal hernias are seen. Bones: Unremarkable. IMPRESSION: Unremarkable aorta and its attachments. No acute aortic syndrome. 3 mm noncalcified right upper lobe pulmonary nodule. No acute process in the chest, abdomen, and pelvis. Remote hysterectomy and cholecystectomy. Sigmoid diverticulosis. Pelvic floor relaxation with cystocele. Dictated by: Aidan Win M.D. on 01/03/2025 at 10:57 Approved by: Aidan Win M.D. on 01/03/2025 at 11:02 Chest x-ray: Radiologist's Impression: [address] [address] XRay Report Signed Patient: Purnima Rodriges MR#: [id number] : 1950 Acct:[id number] Age/Sex: 74 / F Date of Service: 01/03/25 Loc: ED Accession Number: [id number] Procedure: XR chest 1V Ordering Provider: Wilmer Sparks MD PROCEDURE: XR CHEST 1V INDICATIONS: Chest Pain TECHNIQUE: One view of the chest was acquired. COMPARISON: None. FINDINGS: Surgical changes and devices: None. Lungs and pleura: Lungs are clear. No pleural effusions or pneumothorax. Mediastinum: Mediastinal contours appear normal. Heart size is normal. Bones and chest wall: No suspicious bony lesions. Overlying soft tissues appear unremarkable. IMPRESSION: No acute cardiopulmonary abnormality is seen. Dictated by: Aidan Win M.D. on 01/03/2025 at 11:02 Approved by: Aidan Win M.D. on 01/03/2025 at 11:04 [facility] Narrative Medical decision making narrative: Patient here with for chest pain nausea back pain and dizziness. Patient denies any prior history of heart attack strokes diabetes or aortic aneurysm or dissection. No family history aortic disease. No syncope no numbness tingling weakness to the legs or feet. Patient states has no pain at this time. No abdominal pain. No black or bloody stools. No recent illness. MDM After history and exam, CBC CMP EKG troponin CT angio chest abdomen pelvis Differential considered: Includes but not limited to STEMI non-STEMI aortic dissection aortic aneurysm Medical records reviewed: No recent visit for this complaint Lab Test results independently reviewed as above. Pertinent findings: WBC 5.3 hemoglobin 13 INR 1.1 sodium 137 potassium 3.9 BUN 13 creatinine 0.78 troponin less than 0.012 BNP less than 20, repeat troponin less than 0.012 Independently reviewed EKG normal sinus rhythm normal EKG rate 69 Imaging studies independently reviewed: Chest x-ray no acute finding to be CT angiogram chest abdomen pelvis no acute finding Consultations: Spoke with hospitalist dr gross, will admit Re-evaluations: 12:18 p.m.. Updated patient and family results. Will need admission or transfer for atypical chest pain for stress test. Discussion: Appropriate for admission for atypical chest pain in for cardiac rule out for stress test. Diagnosis: Atypical chest pain Discharge Plan Departure Patient Disposition: Admitted As Inpatient Clinical Impression: Atypical chest pain Admit Date/Time: 01/03/25 14:25 Admit Provider: Chandler Gross
[2025-01-03 10:32] LABS: PTT Partial Thromboplastin Tim 29 SECONDS (25.1-36.5)
[2025-01-03 10:34] LABS: Alanine Aminotransferase 50 IU/L (<35); Albumin 4.7 g/dL (3.5-5.0); Albumin Globulin Ratio 1.7 (1.0-2.8); Alkaline Phosphatase 48 U/L (38-126); Blood Urea Nitrogen 13 mg/dL (7-17); Calcium 9.0 mg/dL (8.4-10.2); Carbon Dioxide 22 mmol/L (22-32); Chloride 103 mmol/L (98-107); Creatine Kinase 82 U/L (30-135); Estimated Glomerular Filt Rate > 60 mL/min (>60); Globulin 2.7 g/dL (1.7-4.1); Glucose 176 mg/dL (70-99); HEMOLYSIS < 15 (0-50); Lipase 117 U/L (23-300); Magnesium 1.9 mg/dL (1.6-2.3); Potassium 3.9 mmol/L (3.4-5.1); Sodium 137 mmol/L (137-145); Total Protein 7.4 g/dL (6.3-8.2)
[2025-01-03 10:45] LABS: NT-proBNP (BNP-Adult 18+) < 20 pg/mL (<125); Troponin I < 0.012 ng/mL (0.01-0.034)
[2025-01-03] MEDS: SODIUM CHLORIDE 0.9% 500 ML 1000 ML IV (10:45)
[2025-01-03] MEDS: ASPIRIN 81 MG CHEW TAB 324 MG PO (12:23)
--- NOTE | 2025-01-03 12:34 | PC.NURSE ---
1216: Confirmed with provider Bridger that he does indeed now want aspirin. He states yes to go ahead and give now.
[2025-01-03 12:58] LABS: Troponin I < 0.012 ng/mL (0.01-0.034)
[2025-01-03 15:45] LABS: Troponin I < 0.012 ng/mL (0.01-0.034)
--- NOTE | 2025-01-03 16:07 | PC.NURSE ---
Pt arrived to [facility] appx 1540, able to ambulate from stretcher to bed without assistive device. Denied chest pain, nausea, and lightheadedness. Oriented to room and call light. Educated pt on fall risk and told her to call staff before getting OOB. Care ongoing.
--- NOTE | 2025-01-03 17:37 | PM.HP.1 ---
History of Present Illness History of Present Illness Date Patient Seen: 01/03/25 Chief complaint: Chest pain/SOB Narrative: Chief complaint: Atypical substernal chest pain radiating to both shoulder blades with dizziness lightheadedness nausea and fatigue History of present illness: 74-year-old female been having dyspepsia for the last couple of days taking lots of Tums this morning at 8:00 a.m. while in the kitchen had substernal chest discomfort and felt lightheaded nauseated dizziness did not regimen but felt like she needed to the pain escalated to the the back between her shoulder blades on both sides. She did not however have diaphoresis syncope or dyspnea with these. She took a shower to try to feel better but the symptoms persisted and came to the emergency room for evaluation. She has no previous cardiac history In the emergency department evaluation workup was unremarkable notably patient had normal EKG negative troponins and negative CT angiography of the chest abdomen and pelvis ruling out pulmonary embolus and any other pulmonary pathology. Patient was placed in observation with a heart score of 3 Review of systems: No fever or chills rigors No headache diplopia or blurred vision No abdominal pain diarrhea constipation No paresthesia or paresis No urinary symptom Physical exam: Very pleasant elderly female in no acute distress HEENT unremarkable Neck no JVD Heart rate and rhythm regular no murmurs Lungs clear Abdomen nontender Extremities no edema Neuro is nonfocal Assessment and plan: Somewhat typical chest pain with heart score of 3 favor esophageal reflux symptoms over unstable angina however we will monitor and rule out Some typical stigmata of anginal symptoms but also could not be manifestations of gastroesophageal reflux especially with dyspepsia and taking Tums EKG and troponins negative Monitor CO troponins and cardiac telemetry 2 day nuclear medicine stress test PPI and Carafate to prevent GERD symptoms from mimicking anginal symptoms DVT prophylaxis: Subcutaneous heparin Code status: Full code blue Disposition: Observation due to the requirement of 2 days we will require 48 hours of hospital care Time based billin minutes were involved in the management of this hair this patient including [id number] evaluation physical examination discussion with patient and family discussion with emergency provider review of objective laboratory EKG and imaging data including direct visualization of these discussion of care plan of care with nursing team [facility] Medical History (Updated 01/03/25 @ 12:19 by Wilmer Sparks MD) Impaired fasting glucose History of colonic polyps De Quervain's tenosynovitis Mumps (~1956) Measles (~1955) Chicken pox (~1956) Cataracts, bilateral (~2014) Colon polyps (~2014) Acquired hypothyroidism Obstructive sleep apnea Depression, major, recurrent (~1969) Obesity (BMI 30.0-34.9) Primary osteoarthritis involving multiple joints Iron deficiency anemia Elevated blood pressure reading without diagnosis of hypertension GERD without esophagitis Mixed hyperlipidemia Surgical History Anesthesia Hx of appendectomy (~2006) Hx of cholecystectomy (~2006) Hx of hysterectomy (~2002) Family History Father Hypertension Heart disease Diabetes mellitus Cancer Hyperlipidemia Mother Liver cancer Heart disease Brother Heart disease Mental health problem Brother Mental health problem Grandmother Cancer Diabetes mellitus Hypertension Family/Other Mental health problem Social History marital status: household members: spouse occupational status: previously employed Smoking Status: Former smoker alcohol intake: current substance use type: does not use Meds Home Medications and Allergies Home Medications ?Medication ?Instructions ?Recorded ?Confirmed ?Type cholecalciferol (vitamin D3) 50 50 mcg PO DAILY 06/14/24 01/03/25 History mcg (2,000 unit) capsule (Vitamin D3) [id number] 4 mg-folic acid 1 tab PO DAILY 06/14/24 01/03/25 History 200 mcg-vit K 25 mcg-lutein tablet (Centrum Minis Women 50 Plus) pantoprazole 20 mg tablet,delayed 20 mg PO DAILY 06/26/24 01/03/25 History release levothyroxine 50 mcg tablet 50 mcg PO DAILY #90 tabs 07/18/24 01/03/25 Rx rosuvastatin 10 mg tablet 10 mg PO DAILY #90 tabs 10/05/24 01/03/25 Rx citalopram 20 mg tablet 20 mg PO DAILY #90 tabs 10/19/24 01/03/25 Rx Allergies Allergy/AdvReac Type Severity Reaction Status Date / Time codeine (CODEINE) Allergy Unknown Nausea Verified 01/03/25 10:11 Penicillins (PENICILLINS) Allergy Unknown Nausea Verified 01/03/25 10:11 nickel AdvReac Intermediate Rash Verified 01/03/25 10:11 Exam Vital Signs (past 8 hours): - 01/03/25 09:58 01/03/25 10:09 01/03/25 10:10 Temperature 98.5 F Pulse Rate 69 68 Respiratory Rate 17 Blood Pressure 174/85 H 174/85 H Pulse Oximetry 96 94 Oxygen Delivery Method Room Air 01/03/25 10:30 01/03/25 10:30 01/03/25 10:47 Temperature Pulse Rate 67 Respiratory Rate 15 Blood Pressure 160/72 H 137/67 Pulse Oximetry 96 Oxygen Delivery Method 01/03/25 10:47 01/03/25 11:00 01/03/25 11:00 Temperature Pulse Rate 66 64 Respiratory Rate 15 12 Blood Pressure 141/70 H Pulse Oximetry 93 93 Oxygen Delivery Method 01/03/25 11:30 01/03/25 11:30 01/03/25 12:00 Temperature Pulse Rate 61 Respiratory Rate 14 13 Blood Pressure 145/65 H Pulse Oximetry 94 95 Oxygen Delivery Method 01/03/25 12:00 01/03/25 12:30 01/03/25 12:30 Temperature Pulse Rate 61 Respiratory Rate Blood Pressure 153/75 H 157/77 H Pulse Oximetry 96 Oxygen Delivery Method 01/03/25 13:00 01/03/25 13:00 01/03/25 13:30 Temperature Pulse Rate 57 L 57 L Respiratory Rate Blood Pressure 144/69 H Pulse Oximetry 95 93 Oxygen Delivery Method Room Air 01/03/25 13:30 01/03/25 14:00 01/03/25 14:01 Temperature Pulse Rate 59 L 58 L Respiratory Rate 12 16 Blood Pressure 147/67 H Pulse Oximetry 95 94 Oxygen Delivery Method Room Air 01/03/25 14:01 01/03/25 14:30 01/03/25 14:30 Temperature Pulse Rate 58 L Respiratory Rate Blood Pressure 172/74 H 146/69 H Pulse Oximetry 95 Oxygen Delivery Method 01/03/25 15:00 01/03/25 15:00 01/03/25 15:30 Temperature Pulse Rate 61 64 Respiratory Rate 21 Blood Pressure 158/76 H Pulse Oximetry 95 96 Oxygen Delivery Method Room Air 01/03/25 15:30 01/03/25 15:34 01/03/25 15:35 Temperature Pulse Rate 63 Respiratory Rate Blood Pressure 164/80 H 149/70 H Pulse Oximetry 94 Oxygen Delivery Method Room Air Oxygen Delivery Method Room Air Objective Labs 01/03/25 10:15 01/03/25 10:15 Labs: Laboratory Results - last 24 hr 01/03/25 01/03/25 01/03/25 10:15 12:27 15:15 WBC 5.3 RBC 4.29 Hgb 13.3 Hct 39.2 MCV 91.4 MCH 31.0 MCHC 33.9 RDW 13.6 Plt Count 184 Neut % (Auto) 59.3 Lymph % (Auto) 29.2 Parmer % (Auto) 8.8 Eos % (Auto) 2.1 Baso % (Auto) 0.6 Neut # (Auto) 3100 Lymph # (Auto) 1500 [place]mer # (Auto) 500 Eos # (Auto) 100 Baso # (Auto) 0 PT 12.1 INR 1.1 APTT 29 Sodium 137 Potassium 3.9 Chloride 103 Carbon Dioxide 22 BUN 13 Creatinine 0.78 Estimated GFR > 60 BUN/Creatinine Ratio 16.7 Glucose 176 H Calcium 9.0 Magnesium 1.9 Total Bilirubin 0.7 AST 51 H ALT 50 H Alkaline Phosphatase 48 Total Creatine Kinase 82 Troponin I < 0.012 < 0.012 < 0.012 NT-Pro-B Natriuret Pep < 20 Total Protein 7.4 Albumin 4.7 Globulin 2.7 Albumin/Globulin Ratio 1.7 Lipase 117 Assessment & Plan Time-Based Coding :: [TOTAL MINUTES] spent with patient and on the chart (including review of chart, obtaining history, exam, reviewing outside data, placing orders, documenting exam and treatment plan, and counseling patient) on [DATE].
[2025-01-03 23:16] LABS: Troponin I < 0.012 ng/mL (0.01-0.034)
[2025-01-04] MEDS: PANTOPRAZOLE DR 40 MG TABLET PO ×2 (01:45→07:47)
[2025-01-04] MEDS: SUCRALFATE 1 GM/10 ML ORAL SUSP PO ×3 (01:45→14:32)
[2025-01-04] MEDS: HEPARIN 5,000 UNIT/ML VIAL 5000 UNIT SUBCUT ×2 (01:47→08:37)
[2025-01-04 03:00] VITALS: BP 142/70; PULSE 72; RESP 18; TEMP 36.5; O2SAT 98
[2025-01-04 08:00] VITALS: BP 135/55; PULSE 76; RESP 14; TEMP 36.3; O2SAT 95
--- NOTE | 2025-01-04 11:20 | CM.DANOTE ---
Patient is a 74 yo female who was admitted OBS Status on 01/03/25 for Chest Pain r/o. Pt has Hyper[employer] and [employer] for insurance and her PCP is Dr. Marito Vasquez at [facility]. EMR was reviewed. Per MD, pt with a few days dyspnea and chest pain radiating to her shoulders and tests returned normal but getting Nuc Stress Test, second part today, and then likely discharge home this evening pending results. SW met bedside with pt and spouse and explained role and they confirm they live at home in [place] and both are active and independent at baseline. They deny any hx of HH or SNF. Spouse appears to have tremor in his hand but able to complete ADLs independently and can assist pt if needed. Pt confirms medical POA is their Dtr and financial is their son Mt. They have local supportive family and then additional family in [place] and [facility]. They do not anticipate any needs at d/c and preference is home after stress test today and they have a ride at d/c. Granddtr then arrived bedside to visit and provide support. No needs identified. Plan: SW to follow for second part of stress test today and then likely home with outpt f/u if stable. YANCI Allen Discharge Planning/Care Management CM Discharge Assessment Start: 01/03/25 14:37 Freq: Status: Active Protocol: Document 01/04/25 11:18 BF (Rec: 01/04/25 11:20 BF [id number]) Discharge Planning Assessment Assigned Discharge YANCI Aguilar Rehabilitation Manager Provider Dr. Marito Vasquez Insurance Medicare DPOA/Assigned Dtr Designee Name Advance Directives? No Advance Directives Yes on File History Provided By Patient,Significant Other,Medical Record Has Patient been No admitted in last 30 days? Prior Living House Arrangements Household Members spouse Type of Drives own vehicle transporation used prior to admit Independent with ADL Yes 's Is patient alert and Yes oriented? Caregiver for No Another Barriers to No Discharge Discharge Plan Home Transportation Spouse bedside and family can transport at d/c Arrangement Referrals Initiated None needed Whiteboard Updated Yes in Patient Room with name and ext. # of Insulation Professional Review Status In Process Please Provide Date 01/04/25 Initial DC Assessment Was Performed Next Review Type Continued Stay Review
--- NOTE | 2025-01-04 13:08 | DI.NM.S_ITS ---
DATE OF SERVICE: 01/04/2025 PHARMACOLOGICAL PERFUSION STUDY INDICATIONS: Chest pain with underlying hyperlipidemia, hypothyroidism. RADIOPHARMACEUTICAL: 27.5 millicurie technetium-99m Myoview IV was injected at stress and 9.7 millicurie technetium-99m Myoview IV was injected at rest. CARDIAC STRESS: The patient underwent IV Lexiscan perfusion study under the supervision of an attending staff as per standard intravenous Lexiscan protocol. The patient remained hemodynamically stable. Blood pressure at rest 144/82. Baseline rhythm sinus. During stress some nonspecific ST-T changes. No convincing ischemic changes. No significant arrhythmias. No chest pain. Had minimal dyspnea. RAW DATA: There is a breast shadow seen. GATED STUDY: Stress LV ejection fraction 73% without any obvious wall motion abnormalities. Resting end-diastolic volume 92 mL. TID ratio 1.02 which is within normal limits. MYOCARDIAL PERFUSION SCAN: Stress supine, resting supine, and stress prone images were compared to each other. Stress supine and resting supine images revealed small to moderate size, severely decreased perfusion of anterior apex and distal lateral wall which got completely resolved during stress prone images suggestive of breast tissue attenuation artifact. On stress prone images, no convincing ischemia or infarction. CONCLUSION: I will call this study a normal myocardial perfusion study with evidence of breast tissue attenuation artifact which got improved during stress prone images. Preserved LV function. No significant arrhythmias. No chest pain. Overall low risk pharmacological perfusion study. I left a message to Dr. Jean Mckeon regarding this perfusion scan findings. Purnima Rodriges - LANDRY/akhil/JILL doc#: [id number]/job#: [id number] dd: 01/04/2025 12:54:00 dt: 01/04/2025 13:03:00 DICTATING MD/COPIES TO: Laura Boateng MD COPIES MNE: MELINDA;
--- NOTE | 2025-01-04 13:43 | P.DS_ITS ---
History of Present Illness History of Present Illness Chief complaint: Chest pain/SOB Narrative: From H&P: Chief complaint: Atypical substernal chest pain radiating to both shoulder blades with dizziness lightheadedness nausea and fatigue History of present illness: 74-year-old female been having dyspepsia for the last couple of days taking lots of Tums this morning at 8:00 a.m. while in the kitchen had substernal chest discomfort and felt lightheaded nauseated dizziness did not regimen but felt like she needed to the pain escalated to the the back between her shoulder blades on both sides. She did not however have diaphoresis syncope or dyspnea with these. She took a shower to try to feel better but the symptoms persisted and came to the emergency room for evaluation. She has no previous cardiac history In the emergency department evaluation workup was unremarkable notably patient had normal EKG negative troponins and negative CT angiography of the chest abdomen and pelvis ruling out pulmonary embolus and any other pulmonary pathology. Patient was placed in observation with a heart score of 3 Discharge Providers Provider Date of admission: 01/03/25 14:25 Discharge Date: 01/04/25 Primary care physician: Marito Vasquez MD Consults: None. Discharge provider: Evens Mckeon MD Summary Hospital Course Discharge Diagnosis: 1. Atypical chest pain with low risk nuclear stress test. Concern for esophageal spasm secondary to her reflux. 2. Esophageal reflux, acute on chronic. 3. ANTONIO, stable. 4. Hypothyroid, stable. 5. Obesity class 2 with BMI of 37, active. 6. Depression, stable. 7. HLD, stable. Hospital Course: She was admitted and was chest pain free at the time of arrival to the hospital. She would serial negative troponins and underwent a Myoview stress test and they of discharge. This is red by has a low risk study with normal EF. The patient was reassured, her situation was discussed directly with her, family, and her doctor who had stopped by. This is Dr. Vasquez. He recommended nitroglycerin as needed for possible esophageal spasm and close follow up next week. She was on Protonix 40 daily chronically. Status at Discharge Cognitive/behavioral status at discharge: oriented Functional status at discharge: independent ambulation Overall status at discharge: patient is back to baseline Time Spent with Patient Time spent: Greater than 30 minutes Exam Vital Signs (past 8 hours): - 01/04/25 08:00 Temperature 97.3 F L Pulse Rate 76 Respiratory Rate 14 Blood Pressure 135/55 L Pulse Oximetry 95 Oxygen Flow Rate 0 Oxygen Delivery Method Room Air Oxygen Flow Rate 0 Narrative Exam Narrative: NAD, seen day of discharge. Normal speech. Normal respiratory effort and rate. Nondistended abdomen. No peripheral edema. Objective ECG Impression: ntervals [place] Rate: 69 P: 37 [place]: 166 QRS: 1 QRSD: 80 T: -5 QT: 434 QTc: 465 Interpretive Statements Normal sinus rhythm Imaging Multiple studies:: Radiologist's impression: Myocardial perfusion study: Low risk. Chest, abdomen, pelvis CTA: Unremarkable aorta and its attachments. No acute aortic syndrome. 3 mm noncalcified right upper lobe pulmonary nodule. No acute process in the chest, abdomen, and pelvis. Remote hysterectomy and cholecystectomy. Sigmoid diverticulosis. Pelvic floor relaxation with cystocele. chest x-ray: No acute cardiopulmonary abnormality is seen. Labs 01/03/25 10:15 01/03/25 10:15 Labs: Laboratory Results - last 24 hr 01/03/25 01/03/25 15:15 22:41 Troponin I < 0.012 < 0.012 [facility] Medical History Impaired fasting glucose History of colonic polyps De Quervain's tenosynovitis Mumps (~1956) Measles (~1955) Chicken pox (~1956) Cataracts, bilateral (~2014) Colon polyps (~2014) Acquired hypothyroidism Obstructive sleep apnea Depression, major, recurrent (~1969) Obesity (BMI 30.0-34.9) Primary osteoarthritis involving multiple joints Iron deficiency anemia Elevated blood pressure reading without diagnosis of hypertension GERD without esophagitis Mixed hyperlipidemia Surgical History Anesthesia Hx of appendectomy (~2006) Hx of cholecystectomy (~2006) Hx of hysterectomy (~2002) Family History Father Hypertension Heart disease Diabetes mellitus Cancer Hyperlipidemia Mother Liver cancer Heart disease Brother Heart disease Mental health problem Brother Mental health problem Grandmother Cancer Diabetes mellitus Hypertension Family/Other Mental health problem Social History marital status: household members: spouse occupational status: previously employed Smoking Status: Former smoker alcohol intake: current substance use type: does not use Discharge Assessment & Plan Assessment and Plan Assessment: 1. Atypical chest pain with low risk nuclear stress test. Concern for esophageal spasm secondary to her reflux. 2. Esophageal reflux, acute on chronic. Plan of Treatment: Discharge home, close follow up with Dr. Vasquez. We will use nitroglycerin as needed for spasm. We will see him within the next week. We will continue Protonix 40 daily. Discharge Plan Discharge Plan Patient Disposition: Home Provider Discharge Comment: Stable for discharge home, discussed with primary care physician Dr. Vasquez. Discharge orders & Medications Prescriptions: New nitroglycerin 0.4 mg tablet, sublingual 0.4 mg sublingual Q5M Qty: 30 0RF Rx Instructions: do not exceed 3 doses per episode Continued levothyroxine 50 mcg tablet 50 mcg PO DAILY Qty: 90 3RF rosuvastatin 10 mg tablet 10 mg PO DAILY Qty: 90 2RF citalopram 20 mg tablet 20 mg PO DAILY Qty: 90 1RF pantoprazole 20 mg tablet,delayed release (DR/EC) 20 mg PO DAILY cholecalciferol (vitamin D3) [Vitamin D3] 50 mcg (2,000 unit) capsule 50 mcg PO DAILY Centrum Minis Women 50 Plus 4 mg iron-200 mcg-25 mcg tablet 1 tab PO DAILY Follow up/Referrals: Marito Vasquez MD [Primary Care Provider, Internal Medicine] Visit Report/Discharge Packet Instructions: DI for Gastroesophageal Reflux Disease (GERD) Stand Alone Forms: Patient Portal/API, Stroke Signs & Symptoms Discharge Data Primary Care Provider: Marito Vasquez V Attending Provider: Chandler Raphael Admit Date/Time: 01/03/25 14:25
--- NOTE | 2025-01-04 15:02 | PC.NURSE ---
D/c instructions reviewed with pt and spouse. Discussed s/s of DE and s/s of stroke. Discussed when to take nitro, when to call 911. IV and tele removed. Pt exited via w/c with ANIMAL LABORATORY TECHNICIAN and spouse to private vehicle.
== END 2025-01-04 15:00 | disposition home or self-care (01) ==
LOC: ED 13:07 → AC 18:17
PROVIDERS: Admitting Provider Internal Medicine; Emergency Provider Emergency Medicine; PCP Internal Medicine; Referring Provider Emergency Medicine; Visit Provider Internal Medicine
DX: R06.02 Shortness of breath (principal); R07.89 Other chest pain; K21.9 Gastro-esophageal reflux disease without esophagitis; G47.33 Obstructive sleep apnea (adult) (pediatric); E03.9 Hypothyroidism, unspecified; F32.A Depression, unspecified; E78.5 Hyperlipidemia, unspecified; E66.812 Obesity, class 2; Z68.37 Body mass index [BMI] 37.0-37.9, adult; Z87.891 Personal history of nicotine dependence
CPT/HCPCS: 36415; 71045; 71275; 74174; 78452; 80053; 82550; 83690; 83735; 83880; 84484; 85025; 85610; 85730; 93005; 93010; 93017; 96360; 96372; 99284; G0378; A9502; J1644; J2785; J7040; Q9967